=== PATIENT | female | born 1955 | race Caucasian/White ===

== ENCOUNTER 2024-03-12 06:42 | Observation (INO) ==
[~2024-03-12 06:42] MED LIST: NS 0.45% 1000 ml BAG 1,000 ML IV SCH; Naloxone 0.4 mg VIAL 0.4 mg/ml 1 ml VIAL IV PRN
[2024-03-12] MEDS ORDERED: ceFAZolin 2 GM PREMIX 2 GM/50 ML BAG ONE (07:54)
[2024-03-12] MEDS ORDERED: Tranexamic Acid 1 GM/100ML BAG 2,000 MG/200 ML BAG IV ONE (07:54)
[2024-03-12] MEDS ORDERED: Dexamethasone IV 4 MG/ML VIAL 1 ml VIAL ONE (08:19)
[2024-03-12] MEDS ORDERED: Midazolam 2 mg/2 ml VIAL 1 mg/ml 2 ml VIAL (2 mg) ONE (08:19)
[2024-03-12] MEDS ORDERED: fentaNYL 100 mcg/2 ml 50 MCG/ML VIAL ONE ×2 (08:19→12:40)
[2024-03-12] MEDS ORDERED: ROPIVACAINE 5 MG/ML 30 ML BTL (0.5%) ONE ×2 (08:20→08:31)
[2024-03-12 08:47] LABS: Rapid COVID-19 Molecular Undetected (Undetected)
[2024-03-12] MEDS ORDERED: Lidocaine 2% PF 5 ML VIAL ONE (09:18)
[2024-03-12] MEDS ORDERED: Phenylephrine IV 10 MG/ML 1 ml VIAL ONE (09:56)
[2024-03-12] MEDS ORDERED: Propofol 10 MG/ML 20 ML BTL ONE ×2 (10:59→11:40)
[2024-03-12] MEDS ORDERED: Phenylephrine 40 mcg/mL 10mL (400mcg) SYRINGE ONE (11:40)
[2024-03-12] MEDS ORDERED: Morphine 2 MG/ML SYRINGE IV PRN (12:14)
[2024-03-12] MEDS ORDERED: Ondansetron 4 mg VIAL 2 MG/ML 2 ml VIAL IV PRN (12:14)
[2024-03-12] MEDS ORDERED: Lactulose 30 ml UDC PO PRN (12:14)
[2024-03-12] MEDS ORDERED: Magnesium Hydroxide LIQ 30 ML UDC PO PRN (12:14)
[2024-03-12] MEDS ORDERED: Calcium Carb (TUMS) 500 mg CHEW TAB PO PRN (12:14)
[2024-03-12] MEDS ORDERED: Ondansetron ODT 4 mg TAB 4 MG TAB PO PRN (12:14)
[2024-03-12] MEDS: fentaNYL 100 mcg/2 ml 50 MCG/ML VIAL IV PRN (12:41)
[2024-03-12] MEDS ORDERED: Ondansetron 4 mg VIAL 2 MG/ML 2 ml VIAL ONE (12:45)
[2024-03-12] MEDS: Ondansetron 4 mg VIAL 2 MG/ML 2 ml VIAL IV PRN (12:46)
[2024-03-12] MEDS: Lactated Ringers 1000 ml BAG 1,000 ML IV SCH ×2 (14:31→19:26)
[2024-03-12] MEDS ORDERED: HYDROcodone/ACETAMIN 5/325 mg TAB PO PRN (15:59)
[2024-03-12] MEDS: Prochlorperazine 5 mg/ml 2 ml VIAL (10 mg) IV PRN (16:14)
[2024-03-12] MEDS: ceFAZolin 2 GM PREMIX 2 GM/50 ML BAG IV SCH (17:26)
[2024-03-12] MEDS: Acetaminophen IV 1 GM/100ML 1,000 MG/100 ML BAG IV ONE (19:26)
[2024-03-12] MEDS: Buffered Lidocaine 1% SYRIN 1 ml INTRADERM ONE (19:26)
[2024-03-12] MEDS: Magnesium Hydroxide LIQ 30 ML UDC PO SCH (21:46)
[2024-03-13 05:58] LABS: Hematocrit 31.2 % (35-45); Mean Platelet Volume 7.8 fL (7.5-11.2); Platelet Count 375 10^3/uL (150-450)
[2024-03-13 07:09] LABS: Creatinine, Serum 0.91 mg/dL (0.51-0.95); Potassium 3.5 mmol/L (3.5-5.0); eGFR CKD-EPI 69.6 (>60)
[2024-03-13] MEDS: Vitamin THERAPEUTIC TAB PO SCH (10:14)
[2024-03-13] MEDS: HYDROcodone/ACETAMIN 5/325 mg TAB PO PRN (10:14)
[2024-03-13] MEDS: DULoxetine DR 30 mg CAP PO SCH (10:15)
[2024-03-13] MEDS: Duloxetine Sprinkle 30 mg CAP PO SCH (12:51)
== END 2024-03-13 12:55 | disposition home or self-care (01) ==
LOC: SSU 06:42 → OR 06:42
PROVIDERS: ADMIT Orthopaedic Surgery Adult Reconstructive Orthopaedic Surgery; ATTEND Orthopaedic Surgery Adult Reconstructive Orthopaedic Surgery